=== PATIENT | female | born 1965 | race Caucasian/White ===

== ENCOUNTER → 2021-05-17 14:30 | Outpatient (BNVA) | payer MEDICARE, SELFPAY | PROVIDERS: Family Provider Family Medicine; Visit Provider Family Medicine | DX: Z13.6 Encounter for screening for cardiovascular disorders (principal); R74.8 Abnormal levels of other serum enzymes; Z13.1 Encounter for screening for diabetes mellitus | CPT/HCPCS: 80053; 80061 ==

== ENCOUNTER → 2022-06-29 14:13 | Outpatient (BNVA) | payer BC, SELFPAY | PROVIDERS: Family Provider Family Medicine; PCP Family Medicine; Visit Provider Family Medicine | DX: Z13.1 Encounter for screening for diabetes mellitus (principal); E78.2 Mixed hyperlipidemia; M54.6 Pain in thoracic spine; R13.10 Dysphagia, unspecified; M77.8 Other enthesopathies, not elsewhere classified; R13.12 Dysphagia, oropharyngeal phase; Z72.0 Tobacco use | CPT/HCPCS: 80048; 80061 ==

== ENCOUNTER → 2022-07-15 12:57 | Outpatient (BNVA) | payer BC, SELFPAY | PROVIDERS: Family Provider Family Medicine; PCP Family Medicine; Visit Provider Family Medicine | DX: M54.6 Pain in thoracic spine (principal) | CPT/HCPCS: 72072 ==

== ENCOUNTER 2022-07-29 08:22 | Outpatient (CLI) | payer MEDICARE, SELFPAY ==
--- NOTE | 2022-07-29 10:15 | FL_ITS ---
WS: [id number] EXAMINATION: FL barium swallow modifd [id number] REASON FOR EXAM: R13.10 - Dysphagia, unspecified ORDER DATE: 07/29/2022 9:10 AM FLUOROSCOPY TIME: 1min [id number] # OF SPOT FILMS: 0 TECHNIQUE: The oral cavity and upper pharyngeal and laryngeal region were observed in the lateral pro jection with fluoroscopy during swallowing. Different consistencies of liquid and food were mixed with barium and administered by the speech path ologist during fluoroscopy. FINDINGS: The oral stage was unremarkable with satisfactory initiation of the swallowing reflex. Mov ement of contrast coated material through the pharynx into the upper esophagus was observed. There wa s no evidence of penetration or aspiration. There was a tendency for the contrast bolus 2 low signifi cantly in the mid esophagus with the barium pill stopping for short time at this level. Please refer to speech pathologist report for specific details regarding this finding and a full report. FL/FL barium swallow modifd [id number] IMPRESSION: PLEASE REFER TO THE SPEECH PATHOLOGIST REPORT FOR ADDITIONAL DETAILS REGARDING THIS MODIFIED BARIUM SWALLOW STUDY.
== END 2022-07-29 08:23 | disposition home or self-care (01) ==
PROVIDERS: PCP Family Medicine; Visit Provider Family Medicine
DX: R49.0 Dysphonia (principal); F17.210 Nicotine dependence, cigarettes, uncomplicated; R13.10 Dysphagia, unspecified
CPT/HCPCS: 31575; 74230; 92611; 99203

== ENCOUNTER → 2022-08-29 09:51 | Outpatient (BNVA) | payer MEDICARE, SELFPAY | PROVIDERS: PCP Family Medicine; Visit Provider Family Medicine | DX: R74.8 Abnormal levels of other serum enzymes (principal) | CPT/HCPCS: 80048; 85025 ==

== ENCOUNTER → 2022-09-30 09:28 | Outpatient (BNVA) | payer MEDICARE, SELFPAY | PROVIDERS: PCP Family Medicine; Visit Provider Otolaryngology | DX: R49.0 Dysphonia (principal); R13.10 Dysphagia, unspecified; F17.210 Nicotine dependence, cigarettes, uncomplicated | CPT/HCPCS: 31575; 99203 ==

== ENCOUNTER → 2022-11-18 09:26 | Outpatient (BNVA) | payer MEDICARE, SELFPAY | PROVIDERS: PCP Family Medicine; Visit Provider Otolaryngology | DX: R49.0 Dysphonia (principal); K21.9 Gastro-esophageal reflux disease without esophagitis; R13.10 Dysphagia, unspecified | CPT/HCPCS: 31575; 99213 ==

== ENCOUNTER 2023-03-10 02:24 | Emergency (ER) | payer MEDICARE, SELFPAY ==
[2023-03-10 02:29] VITALS: BP 128/59; PULSE 75; RESP 20; TEMP 36.5; O2SAT 98; BMI 18.7
--- NOTE | 2023-03-10 02:34 | CTR_ITS ---
PROCEDURE INFORMATION: Exam: CT Abdomen And Pelvis Without Contrast Exam date and time: 03/10/2023 2:50 AM Age: 57 years old Clinical indication: Abdominal pain; Flank; Lower; Prior surgery; Surgery date: 6+ months; Surgery type: Hysto, gb, appy; Additional info: L flank pain TECHNIQUE: Imaging protocol: Computed tomography of the abdomen and pelvis without contrast. Radiation optimization: All CT scans at this facility use at least one of these dose optimization techniques: automated exposure control; mA and/or kV adjustment per patient size (includes targeted exams where dose is matched to clinical indication); or iterative reconstruction. REPORTING DATA: Count of CT and Cardiac NM exams in prior 12 months: This patient has received 0 known CTs and 0 known cardiac nuclear medicine studies in the 12 months prior to the current study. COMPARISON: CR XR thoracic spine 3V* [id number] 07/15/2022 1:08 PM RADIATION DOSE METRICS: Total DLP (mGy-cm): 322.03 FINDINGS: Lungs: Tubular bronchiectasis is noted with inspissated secretions obstructing dilated bronchi in the lingula, incompletely imaged. Liver: Normal. No mass. Gallbladder and bile ducts: Surgical clips are noted in the gallbladder fossa compatible with a prior cholecystectomy. Intra and extrahepatic biliary ductal prominence is nonspecific in such a setting. If there is clinical suspicion for biliary obstruction, suggest MRCP to further assess. Pancreas: Normal. No ductal dilation. Spleen: Normal. No splenomegaly. Adrenal glands: Normal. No mass. Kidneys and ureters: The kidneys are normal in size without hydronephrosis or nephrolithiasis. There is an exophytic 16 x 14 x 10 mm cortical lesion arising from the lower pole of the right kidney which is incompletely evaluated on this noncontrast CT. Recommend renal ultrasound to further assess. Stomach and bowel: There is mild to moderate stool load in the colon. Appendix: No evidence of appendicitis. Intraperitoneal space: Unremarkable. No free air. No significant fluid collection. Vasculature: Unremarkable. No abdominal aortic aneurysm. Lymph nodes: Unremarkable. No enlarged lymph nodes. Urinary bladder: The urinary bladder is relatively contracted. Reproductive: Gynecologic structures are not well seen and may be atrophic or surgically absent. Bones/joints: Unremarkable. No acute fracture. Soft tissues: Unremarkable. CT/CT kidney stone [id number] IMPRESSION: Postsurgical change as described. Biliary prominence is nonspecific. If there is suspicion for biliary obstruction, suggest MRCP to further assess. Constipation. Indeterminate 16 mm right renal cortical lesion. Suggest renal ultrasound to further assess.
--- NOTE | 2023-03-10 02:35 | ED_ITS ---
HPI - Back Pain/Injury General: Chief Complaint: Back Pain/Injury Stated Complaint: Kidney Pain Time Seen by Provider: 03/10/23 02:25 Source: patient Mode of arrival: ambulatory Limitations: no limitations History of Present Illness: 57-year-old female who states that she has been having left flank pain over the last 2 to 3 days. She does have a history of back pain in the past. States his pain has been intermittent is currently a 5 out of 10 she denies any dysuria she had some nausea denies any vomiting or diarrhea. She denies any worsening proving factors. Associated symptoms: Reports nausea; Deny abdominal pain, chills, dysuria, fever(s) or vomiting Review of Systems Const: Denies: fever(s), chills, body aches or change in appetite ENMT: Denies: throat pain or dental pain Card: Denies: chest pain Resp: Denies: dyspnea GI: Reports: nausea; Denies: abdominal pain, vomiting or diarrhea : Reports: flank pain; Denies: dysuria Musc: Denies: neck pain or back pain Skin/Breast: Denies: rash Neuro: Denies: headache(s) PFSH ED PFSH: Medical History Fibromyalgia Left shoulder tendonitis Surgical History H/O: hysterectomy History of appendectomy Hx of cholecystectomy Family History Sister Hypertension Brother Hypertension Mother Hypertension Cancer kidney cancer Social History Smoking and tobacco/nicotine status: current every day tobacco/nicotine user (1/2 ppd) cigarettes Alcohol intake: never Substance/Drug Use: never Physical Exam Const: COMMON NORMALS: no acute distress, patient oriented x3 and healthy appearing HENMT: COMMON NORMALS: normocephalic and atraumatic HEAD & SCALP: normocephalic and atraumatic Neck/C-Spine: COMMON NORMALS: full ROM and supple Chest: COMMONS NORMALS: normal inspection of the chest Resp: COMMON NORMALS: normal respiratory effort Cardio: COMMON NORMALS: regular rate, regular rhythm and No murmurs present (Cardio) RATE: regular rate RHYTHM: regular rhythm Extremity: COMMON NORMALS: normal to inspection and full ROM Neuro: COMMON NORMALS: patient oriented x3, moves all extremities and no focal motor deficits Psych: COMMON NORMALS: mental status grossly normal, Normal thought process present and cooperative THOUGHT PROCESS: Normal thought process present Skin: COMMON NORMALS: no rashes or lesions noted and no wounds GENERAL SKIN EXAM: no rashes or lesions noted Course Vital Signs: Vital signs: Vital Signs Temperature 97.7 F 03/10/23 02:29 Pulse Rate 75 03/10/23 02:29 Respiratory Rate 18 03/10/23 02:44 Blood Pressure 128/59 03/10/23 02:29 Pulse Oximetry 98 03/10/23 02:29 MDM - Back Pain/Injury Medical Decision Making Patient presents here with back pains likely muscular in nature CT scan shows no kidney stone urinalysis here is normal as well no signs of urinary tract or kidney infection we will place patient on Naprosyn patient is to follow-up with PCP and return if worsening. Medical Records I reviewed the patient's medical records. Labs I reviewed the patient's lab results. 03/10/23 02:35 03/10/23 02:35 Radiology Impressions Abdomen/Pelvis CT 03/10/23 02:34 IMPRESSION: Postsurgical change as described. Biliary prominence is nonspecific. If there is suspicion for biliary obstruction, suggest MRCP to further assess. Constipation. Indeterminate 16 mm right renal cortical lesion. Suggest renal ultrasound to further assess. Laboratory Results WBC 9.43 10^3/uL (3.29-11.43) 03/10/23 02:35 RBC 4.50 10^6/uL (3.85-5.65) 03/10/23 02:35 Hgb 14.10 g/dL (11.27-16.99) 03/10/23 02:35 Hct 43.6 % (36-47) 03/10/23 02:35 MCV 96.9 fl (85-98) 03/10/23 02:35 MCH 31.3 pg (27-33) 03/10/23 02:35 MCHC 32.3 g/dL (30-55) 03/10/23 02:35 RDW 12.1 % (12.1-15.1) 03/10/23 02:35 Plt Count 272 10^3/cmm (157-399) 03/10/23 02:35 MPV 9.5 fL (7.4-10.4) 03/10/23 02:35 Neut % (Auto) 57.1 % 03/10/23 02:35 Lymph % (Auto) 30.8 % 03/10/23 02:35 [place] % (Auto) 10.2 % 03/10/23 02:35 Eos % (Auto) 1.4 % 03/10/23 02:35 Baso % (Auto) 0.4 % 03/10/23 02:35 Neut # (Auto) 5.39 10^3/uL (1.8-7.7) 03/10/23 02:35 Lymph # (Auto) 2.9 10^3/uL (0.8-4.8) 03/10/23 02:35 [place] # (Auto) 1.0 10^3/uL (0.2-0.9) H 03/10/23 02:35 Eos # (Auto) 0.1 10^3/uL (0.0-0.8) 03/10/23 02:35 Baso # (Auto) 0.0 10^3/uL (0.0-0.1) 03/10/23 02:35 Nucleated RBC % (auto) 0 % 03/10/23 02:35 Nucleated RBCs # 0.0 /100WBC 03/10/23 02:35 Sodium 142 mmol/L (136-145) 03/10/23 02:35 Potassium 4.4 mmol/L (3.5-5.1) 03/10/23 02:35 Chloride 106 mmol/L (98-107) 03/10/23 02:35 Carbon Dioxide 26 mmol/L (22-29) 03/10/23 02:35 Anion Gap 14.4 (5-19) 03/10/23 02:35 BUN 16 mg/dL (6-20) 03/10/23 02:35 Creatinine 0.7 mg/dL (0.5-0.9) 03/10/23 02:35 GFR Calculation 86.9 mL/min (90-130) L 03/10/23 02:35 Glucose 96 mg/dL (65-115) 03/10/23 02:35 Calculated Osmolality 295 mOsm/kg (285-295) 03/10/23 02:35 Calcium 9.5 mg/dL (8.5-10.5) 03/10/23 02:35 Total Bilirubin 0.2 mg/dL (0.15-1.2) 03/10/23 02:35 AST 26 U/L (0-32) 03/10/23 02:35 ALT 18 U/L (0-33) 03/10/23 02:35 Alkaline Phosphatase 90 U/L (35-105) 03/10/23 02:35 Total Protein 6.8 g/dL (6.6-8.7) 03/10/23 02:35 Albumin 4.7 g/dL (3.5-5.2) 03/10/23 02:35 Globulin 2.1 g/dL (1.3-4.6) 03/10/23 02:35 Lipase 36 U/L (13-60) 03/10/23 02:35 Urine Color Light yellow (Yellow) 03/10/23 02:35 Urine Appearance Clear (CLEAR) 03/10/23 02:35 Urine pH 5 (5-7) 03/10/23 02:35 Ur Specific [place] 1.010 (1.005-1.030) 03/10/23 02:35 Urine Protein Neg (Negative) 03/10/23 02:35 Urine Glucose (UA) Norm (Normal) 03/10/23 02:35 Urine Ketones Negative (Negative) 03/10/23 02:35 Urine Blood Neg (Negative) 03/10/23 02:35 Urine Nitrate Negative (Negative) 03/10/23 02:35 Urine Bilirubin Neg (Negative) 03/10/23 02:35 Urine Urobilinogen Neg mg/dL (Negative) 03/10/23 02:35 Ur Leukocyte Esterase Negative (Negative) 03/10/23 02:35 All radiology interpretation(s) finalized by discharge Discharge Plan Discharge Patient Disposition: Home Clinical Impression: Back pain Condition: Stable Prescriptions: New Naprosyn 500 mg tablet 500 mg PO BID PRN (Reason: pain) Qty: 20 0RF No Action naproxen 500 mg tablet 500 mg PO BID Hold Instructions: Home Medication placed on hold at Doctor's office erythromycin 5 mg/gram (0.5 %) ointment 1 applic ophthalmic (eye) Q6H PRN (Reason: eye prophylaxis) 7 Days Qty: 7 1RF tizanidine 2 mg tablet 2 mg PO Q8H PRN (Reason: muscle spasticity) Qty: 30 1RF omeprazole 20 mg capsule,delayed release(DR/EC) 20 mg PO DAILY 360 Days Qty: 90 3RF Discharge Orders: Discharge ED (Routine); Ordered 03/10/23 Ordered By: Scott Nesbitt Referrals: Celeste Engel MD [Primary Care Provider] - 1-3 days Discharge Diet: Advance as tolerated Discharge Activity: Resume usual activity Patient Instructions: Back Pain (ED) Coding Level of Care Code ED Supervisor [employer] Processing for Maria Alejandra Mott
[2023-03-10] MEDS: sodium chloride 0.9% 1,000 ML 999 ML IV (02:41)
[2023-03-10] MEDS: ondansetron 2 mg/ML SDV 2 mL 4 MG IVP (02:42)
[2023-03-10 02:44] VITALS: RESP 18
[2023-03-10] MEDS: morphine 4 mg/mL SDV 1 mL IVP (02:44)
[2023-03-10 02:50] LABS: Add Urine Microscopic? NO; Charge for UA Resulting for Rev
[2023-03-10 02:51] LABS: Bilirubin Urine Neg (Negative); Blood Urine Neg (Negative); Glucose Urine UA Norm (Normal); Ketones Urine Negative (Negative); Nitrate Urine Negative (Negative); Protein Urine Neg (Negative); Urine Appearance Clear (CLEAR); Urine Color Light yellow (Yellow); pH Urine 5 (5-7)
[2023-03-10 02:52] LABS: Leukocyte Esterase Urine Negative (Negative); Urobilinogen Urine Neg (Negative)
[2023-03-10 02:53] LABS: Basophils % 0.4 %; Eosinophils # 0.1 10^3/uL (0.0-0.8); Eosinophils % 1.4 %; Hematocrit 43.6 % (36-47); Lymphocytes # 2.9 10^3/uL (0.8-4.8); Lymphocytes % 30.8 %; Mean Corpuscular HGB Conc 32.3 g/dL (30-55); Mean Corpuscular Hemoglobin 31.3 pg (27-33); Mean Corpuscular Volume 96.9 fl (85-98); Mean Platelet Volume 9.5 fL (7.4-10.4); Monocytes % 10.2 %; Neutrophils # 5.39 10^3/uL (1.8-7.7); Neutrophils % 57.1 %; Nucleated Red Blood Cells % 0 %; Platelet Count 272 10^3/cmm (157-399); Red Cell Distribution Width 12.1 % (12.1-15.1); White Blood Count 9.43 10^3/uL (3.29-11.43)
[2023-03-10 03:14] LABS: Alanine Aminotransferase 18 U/L (0-33); Albumin Level 4.7 g/dL (3.5-5.2); Alkaline Phosphatase 90 U/L (35-105); Anion Gap 14.4 (5-19); Aspartate Amino Transferase 26 U/L (0-32); Blood Urea Nitrogen 16 mg/dL (6-20); Calcium 9.5 mg/dL (8.5-10.5); Carbon Dioxide 26 mmol/L (22-29); Chloride 106 mmol/L (98-107); Globulin 2.1 g/dL (1.3-4.6); Glomerular Filtration Rate 86.9 mL/min (90-130); Glucose 96 mg/dL (65-115); Lipase 36 U/L (13-60); Osmolality Calculated 295 mOsm/kg (285-295); Potassium 4.4 mmol/L (3.5-5.1); Sodium 142 mmol/L (136-145); Total Bilirubin 0.2 mg/dL (0.15-1.2); Total Protein 6.8 g/dL (6.6-8.7)
[2023-03-10 03:32] VITALS: BP 101/61; PULSE 62; RESP 14; O2SAT 98
[2023-03-10] MEDS: lidocaine 2% viscous 15 ML, aluminum-mag hydrox-simethicon 30 ML, sucralfate oral liq 1 GM PO (04:06)
--- NOTE | 2023-03-10 04:08 | PC.NURSE ---
Pt c/o epigastric pain and requesting medications. Dr Nesbitt notified and pt given Gi cocktail.
[2023-03-10 04:09] VITALS: BP 100/59; PULSE 65; RESP 14; O2SAT 94
== END 2023-03-10 04:10 | disposition home or self-care (01) ==
PROVIDERS: Emergency Provider Emergency Medicine; PCP Family Medicine
DX: M54.50 Low back pain, unspecified (principal); F17.210 Nicotine dependence, cigarettes, uncomplicated
CPT/HCPCS: 74176; 80053; 81003; 83690; 85025; 96361; 96374; 96375; 99285; J2270; J2405; J7030

== ENCOUNTER 2023-06-19 09:09 | Observation (INO) | payer MEDICARE, SELFPAY ==
[2023-06-19] VITALS (9 sets, daily range): BP systolic 96–125; BP diastolic 51–77; PULSE 59–70; RESP 12–18; TEMP 36.6–37; O2SAT 94–98; BMI 18.0
--- NOTE | 2023-06-19 09:43 | XR_ITS ---
WS: [id number] PORTABLE CHEST HISTORY: palpitations COMPARISON: None available. Hyperinflated lungs with emphysema. No mass or nodule. No pneumonia. No pleural effusion or pneumotho rax. Cardiac size: Normal. Mediastinum/Aorta: Normal mediastinum. No osseous abnormality seen. IMPRESSION: Chronic emphysema. No pneumonia.
--- NOTE | 2023-06-19 09:43 | ECG_ITS ---
[facility] Test Date: 2023-06-19 Pat Name: Rosmery Recio Department: Room: Gender: Female Slot Operations Director: : 1965 Requested By: Katya Hardy Order Number: [id number] Ritchie MD: Jorge Espinal M.D. Measurements Intervals [place] Rate: 83 P: 83 [place]: 135 QRS: 67 QRSD: 78 T: 71 QT: 359 QTc: 422 Interpretive Statements SINUS RHYTHM POSSIBLE RIGHT VENTRICULAR CONDUCTION DELAY [RSR (QR) IN V1/V2] No previous ECG available for comparison Electronically Signed On 06-19-2023 14:18:37 [employer] BUILDER by Jorge Espinal M.D. [id number]
--- NOTE | 2023-06-19 09:44 | CT_ITS ---
WS: [id number] CT HEAD NONCONTRAST HISTORY: lightheaded, blacked out, tingling TECHNIQUE: Contiguous axial imaging performed through the brain in 2.5 mm imaging. Bone and soft tiss ue windows. Sagittal and coronal reformats reviewed. All CT scans at [facility] use at least one of these dose optimization techniques: automated exposure control; mA and/or kV adjustment per pa tient size (includes targeted exams where dose is matched to clinical indication); or iterative recon struction. DLP: 945.98 mGy.cm COMPARISON: None available. No acute intracranial hemorrhage, midline shift or mass effect. No atrophy or prior infarcts or herniation. Ventricles: Normal size with no hydrocephalus. There is very slight enlargement of the LEFT occipita l horn which is probably normal variant. No adjacent infarct is identified. Paranasal sinuses: As visualized are clear. Mastoid air cells: Well pneumatized. Calvarium and scalp: Skull is intact with no soft tissue edema or swelling. IMPRESSION: Unremarkable noncontrast CT head. No acute findings.
--- NOTE | 2023-06-19 09:45 | W.ED.GENADLT ---
HPI - General Adult General: Chief complaint: Dizziness Stated complaint: blacking out, confusion Time Seen by Provider: 06/19/23 09:29 Source: patient and family () Mode of arrival: ambulatory Limitations: no limitations History of Present Illness: Patient is a 57-year-old female presents to ED today for evaluation of an episode that occurred just prior to arrival. Patient tells me she was seated in a chair when she began having a sensation that she was being pulled to the left . Patient states then she began having tunnel vision and states she blacked out. Unknown how long she was out for but states when she came to she felt like her heart was racing and she had some numbness/tingling to the left arm. Upon arrival to the emergency department she no longer is having palpitations, racing heart rate. She states the tingling to her left arm has subsided. She states her vision is essentially back to normal apart from noticing a floater . She states she has had one floater over that has been there for about two years but states she now has 2. She still feels like she is being pulled to the left. No ear pain, tinnitus, or hearing loss. No recent illness or URI. PMH includes smoking history and tendonitis in her hands. Patient was able to ambulate back to her room without assistance. Onset (ago): hour(s) Severity: mild Relieving factors: none Exacerbating factors: none Associated symptoms: Reports palpitations (racing heart rate/subsided upon examination ); Deny chest pain, confusion, dyspnea, headache(s), malaise, rash or syncope Treatments prior to arrival: none Review of Systems Const: Denies: fever(s), chills, body aches, fatigue or malaise Eyes: Reports: floaters; Denies: blurry vision, photophobia, eye discomfort, eye redness, yellow eyes or seeing flashes ENMT: Reports: disequilibrium; Denies: throat pain, odynophagia, ear or mastoid pain, ear discharge, change in hearing, tinnitus, nasal discharge, nasal congestion or sinus pain Card: Reports: palpitations (racing heart rate/subsided upon examination ); Denies: chest pain, irregular heart rhythm, edema, swelling of feet/ankles, lightheadedness, syncope, pre-syncope, dyspnea on exertion, orthopnea, leg pain with exertion or acrocyanosis Resp: Denies: dyspnea GI: Denies: abdominal pain Musc: Denies: neck pain, back pain, extremity pain, extremity swelling, joint pain or joint swelling Skin/Breast: Denies: rash Neuro: Reports: sensory changes (L arm-subsided upon arrival) and dizziness (states she does not feel dizzy-just lightheaded ); Denies: headache(s), numbness in extremities, weakness in extremities, lack of coordination, difficulty walking, frequent falls, confusion, behavioral changes, Slurred speech present, difficulty communicating thoughts, seizure-like activity or involuntary movements [facility] ED PFSH: Medical History (Updated 06/19/23 @ 13:43 by NIKOLAS Baires) GERD (gastroesophageal reflux disease) Mixed hyperlipidemia Fibromyalgia Surgical History History of appendectomy H/O: hysterectomy Hx of cholecystectomy Family History Sister Hypertension Brother Hypertension Mother Hypertension Cancer kidney cancer Social History Smoking and tobacco/nicotine status: current every day tobacco/nicotine user (1/2 ppd) cigarettes Alcohol intake: never Substance/Drug Use: never Physical Exam Const: COMMON NORMALS: no acute distress, average body habitus, patient oriented x3, no limitations, alert and well nourished GENERAL APPEARANCE: cooperative ORIENTATION/CONSCIOUSNESS: Yes awake, Yes oriented to person, Yes oriented to place and Yes oriented to time HENMT: COMMON NORMALS: normocephalic, atraumatic, hearing grossly normal bilaterally, external ears normal, EAC's normal and TM's normal bilaterally HEAD & SCALP: normal to inspection, normocephalic and atraumatic FACE & SINUS: normal facial exam and face symmetric EXTERNAL EAR: Yes external ears normal EXTERNAL AUDITORY CANAL: EAC's normal TYMPANIC MEMBRANE: TM's normal bilaterally Eye: COMMON NORMALS: Equal, round and reactive pupils present and EOMs intact bilaterally GENERAL EYE: appearance normal, both eyes and all related structures and normal light reflex VISUAL REBOLLEDO: No peripheral vision loss, No central vision loss, No left visual field cut, No right visual field cut, No bitemporal visual field cut, No binasal visual field cut and No visual field cut by quadrant ALIGNMENT: Yes alignment normal PERIORBITAL: periorbital findings normal PUPIL: Yes Equal, round and reactive pupils present DIRECT OPHTHALMOSCOPY: Yes normal light reflex OTHER: no nystagmus Neck/C-Spine: COMMON NORMALS: full ROM, no lymphadenopathy, supple and no meningeal signs Chest: COMMONS NORMALS: normal inspection of the chest Resp: COMMON NORMALS: normal respiratory effort and clear to auscultation bilaterally AUSCULTATION: clear to auscultation bilaterally Cardio: COMMON NORMALS: regular rate and regular rhythm RATE: regular rate RHYTHM: regular rhythm Extremity: COMMON NORMALS: normal to inspection GENERAL: Yes normal exam except as noted Neuro: HERON COMA SCALE: document GCS findings Heron coma scale eye opening: Spontaneous Heron coma scale verbal response: Orientated [place]on coma scale motor response: Obey commands [place] coma scale total score: 15 COMMON NORMALS: patient oriented x3, CN's II-XII intact bilaterally, moves all extremities, no focal motor deficits, no sensory deficits noted and gait normal SENSORIUM/ORIENTATION: Yes alert, Yes oriented to person, Yes oriented to place and Yes oriented to time MENINGEAL SIGNS: Yes no meningeal signs CRANIAL NERVES: Yes CN normal except as noted COORDINATION/BALANCE: [id number]-fd-[id number] test normal and qteu-fz-doyl test normal SPEECH: speech normal GAIT: Yes Other gait observations present (see below) MOTOR EXAM: 5/5 motor strength present throughout COORDINATION: rlwcbe-ie-[id number] test normal and qyfk-ao-wymm test normal OTHER: Patient was able to get up in her room and ambulate unassisted however gait did appear somewhat unsteady. states she is walking like she is drunk . Patient tells me she still feels like she is getting pulled to the left. Skin: COMMON NORMALS: no rashes or lesions noted GENERAL SKIN EXAM: no rashes or lesions noted Course Consultations: Consultation #1: Dr. Zarco-recommends CTA head/neck as well as MRI w/ and w/o and 2D echo and give her aspirin; states if we cannot get all of this done from the ED then we can admit to OBS Vital Signs: Vital signs: Vital Signs Temperature 98.0 F 06/19/23 09:22 Pulse Rate 70 06/19/23 09:22 Respiratory Rate 12 06/19/23 09:22 Blood Pressure 100/53 06/19/23 09:22 Pulse Oximetry 94 06/19/23 09:22 Oxygen Delivery Me thod Room Air 06/19/23 09:22 MDM - General Adult Medical Decision Making Patient here for evaluation following an episode of feeling like she was being pulled to the left, loss of vision, new left eye floater, heart palpitations, and left arm numbness and tingling. I have discussed case with Dr. Nesbitt who agreed with decision to consult with neurology. I spoke to Dr. Zarco who had recommended CTA head/neck, MRI with and without contrast, and a 2D echocardiogram. He has graciously came and evaluated patient here in the emergency department. Please see his note regarding his encounter with the patient. I spoken to Dr. Kramer who will admit the patient. Dr. Nesbitt will write admit orders Medical Records I reviewed the patient's medical records. Lab Data I reviewed the patient's lab results. 06/19/23 09:58 06/19/23 09:58 Laboratory Results WBC 7.44 10^3/uL (3.29-11.43) 06/19/23 09:58 RBC 4.93 10^6/uL (3.85-5.65) 06/19/23 09:58 Hgb 15.40 g/dL (11.27-16.99) 06/19/23 09:58 Hct 46.6 % (36-47) 06/19/23 09:58 MCV 94.5 fl (85-98) 06/19/23 09:58 MCH 31.2 pg (27-33) 06/19/23 09:58 MCHC 33.0 g/dL (30-55) 06/19/23 09:58 RDW 12.1 % (12.1-15.1) 06/19/23 09:58 Plt Count 286 10^3/cmm (157-399) 06/19/23 09:58 MPV 8.6 fL (7.4-10.4) 06/19/23 09:58 Neut % (Auto) 59.0 % 06/19/23 09:58 Lymph % (Auto) 28.4 % 06/19/23 09:58 [place] % (Auto) 11.7 % 06/19/23 09:58 Eos % (Auto) 0.4 % 06/19/23 09:58 Baso % (Auto) 0.4 % 06/19/23 09:58 Neut # (Auto) 4.39 10^3/uL (1.8-7.7) 06/19/23 09:58 Lymph # (Auto) 2.1 10^3/uL (0.8-4.8) 06/19/23 09:58 [place] # (Auto) 0.9 10^3/uL (0.2-0.9) 06/19/23 09:58 Eos # (Auto) 0.0 10^3/uL (0.0-0.8) 06/19/23 09:58 Baso # (Auto) 0.0 10^3/uL (0.0-0.1) 06/19/23 09:58 Nucleated RBC % (auto) 0 % 06/19/23 09:58 Nucleated RBCs # 0.0 /100WBC 06/19/23 09:58 Sodium 137 mmol/L (136-145) 06/19/23 09:58 Potassium 4.0 mmol/L (3.5-5.1) 06/19/23 09:58 Chloride 104 mmol/L (98-107) 06/19/23 09:58 Carbon Dioxide 23 mmol/L (22-29) 06/19/23 09:58 Anion Gap 14.0 (5-19) 06/19/23 09:58 BUN 11 mg/dL (6-20) 06/19/23 09:58 Creatinine 0.7 mg/dL (0.5-0.9) 06/19/23 09:58 GFR Calculation 86.9 mL/min (90-130) L 06/19/23 09:58 Glucose 92 mg/dL (65-115) 06/19/23 09:58 Calculated Osmolality 283 mOsm/kg (285-295) L 06/19/23 09:58 Calcium 9.1 mg/dL (8.5-10.5) 06/19/23 09:58 Total Bilirubin 0.3 mg/dL (0.15-1.2) 06/19/23 09:58 AST 15 U/L (0-32) 06/19/23 09:58 ALT 12 U/L (0-33) 06/19/23 09:58 Alkaline Phosphatase 91 U/L (35-105) 06/19/23 09:58 Troponin T Baseline < 6 ng/L (0-10) 06/19/23 09:58 Troponin T 120 Minute 6.00 ng/L (0-10) 06/19/23 12:27 Delta Troponin T 0.93131 ABS# (0-10) 06/19/23 12:27 Total Protein 7.8 g/dL (6.6-8.7) 06/19/23 09:58 Albumin 4.6 g/dL (3.5-5.2) 06/19/23 09:58 Globulin 3.2 g/dL (1.3-4.6) 06/19/23 09:58 All radiology interpretation(s) finalized by discharge Discharge Plan Discharge Patient Disposition: Placed in Observation Clinical Impression: TIA (transient ischemic attack) Condition: Stable Prescriptions: No Action naproxen 500 mg tablet 500 mg PO BID PRN (Reason: INFLAMATION AND PAIN) Hold Instructions: Home Medication placed on hold at Doctor's office Multi-Vitamins Tablet 1 tab PO DAILY Vitamin C 500 mg Tablet 250 mg PO DAILY Vitamin D3 50 mcg (2,000 unit) Tablet 50 mcg PO DAILY Referrals: Celeste Engel MD [Primary Care Provider] - Coding Level of Care Code ED Graphic Production Artist for Maria Alejandra Mott NIH stroke score NIHSS Level Of Consciousness - 1a: 0 Level Of Consciousness Questions - 1b: Both Correct Level Of Consciousness Commands - 1c: Both Correct Best Gaze - 2: Normal Visual [place] - 3: No Visual Loss Facial Palsy - 4: Normal Motor Arm Right - 5: No Drift Motor Arm Left - 5: No Drift Motor Leg Right - 6: No Drift Motor Leg Left - 6: No Drift Limb Ataxia - 7: Absent Sensory - 8: Normal Best Language - 9: No Aphasia Dysarthia - 10: Normal Extinction And Inattention - 11: 0 Score Total Score: 0
[2023-06-19] MEDS: sodium chloride 0.9% 1,000 ML 999 ML IV (09:52)
[2023-06-19 10:10] LABS: Basophils % 0.4 %; Eosinophils % 0.4 %; Hematocrit 46.6 % (36-47); Lymphocytes # 2.1 10^3/uL (0.8-4.8); Lymphocytes % 28.4 %; Mean Corpuscular Hemoglobin 31.2 pg (27-33); Mean Corpuscular Volume 94.5 fl (85-98); Mean Platelet Volume 8.6 fL (7.4-10.4); Monocytes # 0.9 10^3/uL (0.2-0.9); Monocytes % 11.7 %; Neutrophils # 4.39 10^3/uL (1.8-7.7); Nucleated Red Blood Cells % 0 %; Platelet Count 286 10^3/cmm (157-399); Red Blood Count 4.93 10^6/uL (3.85-5.65); Red Cell Distribution Width 12.1 % (12.1-15.1); White Blood Count 7.44 10^3/uL (3.29-11.43)
[2023-06-19 10:24] LABS: Alanine Aminotransferase 12 U/L (0-33); Albumin Level 4.6 g/dL (3.5-5.2); Alkaline Phosphatase 91 U/L (35-105); Aspartate Amino Transferase 15 U/L (0-32); Blood Urea Nitrogen 11 mg/dL (6-20); Calcium 9.1 mg/dL (8.5-10.5); Carbon Dioxide 23 mmol/L (22-29); Chloride 104 mmol/L (98-107); Globulin 3.2 g/dL (1.3-4.6); Glomerular Filtration Rate 86.9 mL/min (90-130); Glucose 92 mg/dL (65-115); Osmolality Calculated 283 mOsm/kg (285-295); Sodium 137 mmol/L (136-145); Total Bilirubin 0.3 mg/dL (0.15-1.2); Total Protein 7.8 g/dL (6.6-8.7)
[2023-06-19 10:26] LABS: Troponin(5th) Baseline < 6 ng/L (0-10)
--- NOTE | 2023-06-19 11:17 | CT_ITS ---
WS: [id number] CT ANGIOGRAM CEREBRAL AND CAROTID ARTERIES HISTORY: being pulled to left, L eye floaters, L arm numbness TECHNIQUE: CT angiogram is performed of the carotid and cerebral arteries. During arterial injection imaging is obtained from the skull vertex to the aortic arch in 1.25 mm imaging. Coronal and sagittal reformats are submitted. Additional multi planar reformats of the carotid and cerebral arteries are submitted, MIP imaging also reviewed. NASCET criteria utilized. [facility] at least one of these dose optimization techniques: automated exposure control; mA and/or kV adjust ment per patient size (includes targeted exams where dose is matched to clinical indication); or iter ative reconstruction. CONTRAST: Omnipaque 350; 100 mL IV. DLP: 340.69 mGy.cm COMPARISON: CT head 06/19/2023 Carotid Angiogram: Right carotid: Common carotid artery: Arises normally from the innominate artery. No significant plaque or stenosis. Internal carotid artery: No plaque or stenosis. External carotid artery: Patent. Left carotid: Common carotid artery: Arises normally from the aorta. No significant plaque or stenosis. Internal carotid artery: No plaque or stenosis. External carotid artery: Patent. Right vertebral artery: Unremarkable. Left vertebral artery: Unremarkable. Arises normally from the subclavian artery. Subclavian arteries: No stenosis or significant abnormality. Upper thorax: Biapical pleural thickening and scarring. Thyroid gland: Small tiny nodules RIGHT thyroid. Osseous structures: Unremarkable. CEREBRAL ANGIOGRAM: Intracranial vertebral arteries: Normal with no significant atherosclerosis. Basilar artery: No significant stenosis or occlusion. No aneurysm. Intracranial Internal carotid arteries: Demonstrates no significant stenosis or plaque. Middle cerebral arteries: Normal. Anterior cerebral arteries and ACOM: Normal. Posterior cerebral arteries and PCOM's: Normal. Dural venous sinuses are normally enhancing. Mastoid air cells: Normal. Paranasal sinuses: Normal. Calvarium: Normal. IMPRESSION: 1. Normal carotid arteries. 2. No occlusions or significant atherosclerotic disease within the [place] of [place]. No aneurysm. No ophthalmic artery aneurysm.
[2023-06-19] MEDS: aspirin 325 mg Tablet PO (11:36)
[2023-06-19] MEDS: iohexol 350 mg/mL 500 mL Btl (per mL) IV (11:51)
--- NOTE | 2023-06-19 12:05 | ECG_ITS ---
[facility] Test Date: 2023-06-19 Pat Name: Rosmery Recio Department: Room: Gender: Female Coal Miner: : 1965 Requested By: Katya Hardy Order Number: [id number] Chau MD: Jorge Espinal M.D. Measurements Intervals Trail Rate: 69 P: 87 AR: 140 QRS: 76 QRSD: 82 T: 78 QT: 385 QTc: 415 Interpretive Statements SINUS RHYTHM POSSIBLE RIGHT VENTRICULAR CONDUCTION DELAY [RSR (QR) IN V1/V2] Compared to ECG 06/19/2023 09:47:35 No significant changes Electronically Signed On 06-19-2023 14:20:56 LIGHT ARMORED RECONNAISSANCE OFFICER by Jorge Espinal M.D. [id number]
--- NOTE | 2023-06-19 12:20 | PM.CONSULT ---
Providers/Reason For Consult Consulting Physician/Specialty*: Michael Zarco MD neurology and epilepsy Reason for Consult*: Episode of acute balance difficulty associated with syncope followed by numbness and tingling in the left upper extremity with a new floater in the left eye and increased heart rate and palpitation on 06/19/2023 at approximately 7:30 AM Primary Care Provider: Celeste Engel MD History of Present Illness History of Present Illness Rosmery Recio is a 57 year old female with a history of nicotine dependence and total abdominal hysterectomy and floater in the left eye. According to the patient, at approximately 7:30 AM on 06/19/2023 she was at home with her daughter but was reported to experience acute onset of suddenly deviating to the left while walking associated with tunnel vision followed by loss of consciousness for an undetermined period of time. Patient stated that the syncopal episode was unwitnessed. She stated when she regained consciousness she was experiencing numbness and tingling in the left upper extremity associated with palpitations and increased heart rate and a new floater in the left eye. The patient denied any previous episodes. The patient's stated that he returned home and wanted to call EMS but the patient refused and wanted her to bring her to [facility] emergency department. Patient was seen in the emergency department room #9. Patient reported that the symptoms resolved all except for the new floater in the left eye. NIH score = 0. Noncontrast head CT scan was obtained and reported to be negative. In view of the patient's NIH score =0 the patient was not a candidate for intravenous thrombolytics and no thrombolytics were administered. Neurology consult was requested. I recommended the patient undergo CT angiogram of the head and neck as well as head MRI without and with contrast to assess for posterior fossa lesion and posterior circulation stroke. I also recommend the patient be placed on telemetry monitoring for history of palpitations and increased heart rate and obtain 2D echocardiogram to rule out embolic source for posterior circulation tight symptoms. I also recommend the patient's start aspirin 325 mg p.o. every morning first dose now and Zocor 40 mg p.o. nightly per NIH stroke protocol. CT angiogram of the head and neck 06/19/2023 negative for large vessel occlusion or ophthalmic aneurysm. Labs for CBC and comprehensive metabolic panel were unrevealing. Baseline total troponin level reported to be within normal limits at less than 6 and other troponin testing pending at the time of this dictation. Drug allergies: Amoxicillin which resulted in anaphylaxis Ibuprofen which resulted in hives Meloxicam which resulted in a rash Nickel which resulted in hives Prednisone which resulted in palpitations and weakness Sulfonamide antibiotics which resulted in hives Outpatient medications: None Past medications: Hormone supplements Habits: The patient smokes 1/2 pack/day. She denied other drug use. Family history: Remarkable for a maternal aunt who underwent a coronary artery bypass graft x 4 Review of Systems General: Reports: 10 or more systems reviewed and unremarkable except in HPI and below Eyes: Reports: floaters (New floater in the left eye and history of old floater in the left eye) Medications/Allergies Home Medications Medication Instructions Recorded Confirmed Last Taken Type naproxen 500 mg tablet 500 mg PO BID PRN INFLAMATION AND 06/22/19 06/19/23 Unknown History PAIN ascorbic acid (vitamin C) 500 mg 250 mg PO DAILY 06/19/23 06/19/23 06/18/23 History tablet (Vitamin C) cholecalciferol (vitamin D3) 50 50 mcg PO DAILY 06/19/23 06/19/23 06/18/23 History mcg (2,000 unit) tablet (Vitamin D3) multivitamin 1 tab PO DAILY 06/19/23 06/19/23 06/18/23 History Allergies Allergy/AdvReac Type Severity Reaction Status Date / Time amoxicillin Allergy anaphylaxis Verified 06/19/23 09:22 ibuprofen AdvReac Mild hives Verified 06/19/23 09:22 meloxicam [From Mobic] AdvReac Mild rash Verified 06/19/23 09:22 nickel AdvReac Mild hives Verified 06/19/23 09:22 prednisone AdvReac Mild palpitations, Verified 06/19/23 09:22 weakness Sulfa (Sulfonamide AdvReac Mild hives Verified 06/19/23 09:22 Antibiotics) PFSH Acute PFSH: Medical History Fibromyalgia Left shoulder tendonitis Surgical History History of appendectomy H/O: hysterectomy Hx of cholecystectomy Family History Sister Hypertension Brother Hypertension Mother Hypertension Cancer kidney cancer Social History Smoking and tobacco/nicotine status: current every day tobacco/nicotine user (1/2 ppd) cigarettes Alcohol intake: never Substance/Drug Use: never Vitals/I&O/Wt Last Vital Signs Temp 98.0 F 06/19/23 09:22 Pulse 70 06/19/23 09:22 Resp 12 06/19/23 09:22 BP 100/53 06/19/23 09:22 Pulse Ox 94 06/19/23 09:22 O2 Del Method Room Air 06/19/23 09:22 06/18/23 06/19/23 06/19/23 22:59 06:59 14:59 Intake Total 1000 / 1000 Balance 1000 / 1000 Weight last 48 hrs Weight 105 lb Physical Exam Narrative: NIH score = 0 The patient is alert and oriented x 3. Speech fluent. Head normocephalic. Neck supple. Cranial nerves II through XII intact. Pupils equal round and reactive to light and accommodation. Extraocular movements intact. Visual arceo full via confrontation except for complaints of 2 floaters in the left eye (1 chronic and the other occurred acutely on 06/19/2023). Motor testing 5/5 bilaterally. There was no ataxia. Sensory examination intact to gross modalities. Throat clear. Lungs clear. Heart regular rhythm and rate. Extremities were negative for cyanosis Data 06/19/23 09:58 06/19/23 09:58 A&P Assessment and plan (1) TIA (transient ischemic attack): Impression: 1. 57-year-old female who reports being at home and suddenly began walking to the left associated with tunnel vision followed by loss of consciousness for an undetermined period of time awakening with numbness and tingling in the left upper extremity with palpitations, increased heart rate and a new floater in the left eye. Clinical history suggestive of posterior circulation TIA versus stroke on 06/19/2023. Note: Since the patient's NIH score =0 the patient was not a candidate for intravenous thrombolytics and no intravenous thrombolytics were administered 2. Syncope 06/19/2023 3. History of chronic left eye floater now with reports of acute additional new left eye floater 4. Nicotine dependence 5. Total abdominal hysterectomy 6. Palpitations/increased heart rate 7. Family history of maternal aunt with coronary atherosclerotic heart disease status post CABG x 4 Plan: 1. Recommend CT angiogram of the head and neck to assess for posterior circulation thrombus (note: The study was performed on 06/19/2023 and reported to be negative for large vessel occlusion or ophthalmic aneurysm) 2. Recommend head MRI with and without contrast to assess for posterior fossa lesion and stroke 3. Recommend 2D echocardiogram with bubble study to assess for embolic source for stroke/TIA 4. Recommend observation admission with cardiac telemetry monitoring to assess for cardiac arrhythmias 5. Recommend starting aspirin 325 mg p.o. every morning with food first dose now 6. Recommend starting Zocor 40 mg p.o. q. evening per NIH stroke protocol 7. Neurochecks per NIH stroke protocol 8. Syncope precautions during this hospitalization and per state law until further notice 9. Recommend scheduling sleep deprived 61-minute surface EEG recording on outpatient basis to assess for seizures since patient reported experiencing a syncopal episode on 06/19/2023 10. Consider cardiac evaluation to assess for cardiac arrhythmias 11. The patient was encouraged to stop smoking. The patient is aware of the potential health risks associated with smoking and voiced understanding 12. Please schedule patient for follow-up in the [facility] neurology clinic 1 to 2 weeks after discharge (2) Syncope: (3) Visual floaters: (4) Palpitation: Consult Attestations Medical Necessity Statement: The patient was evaluated by neurology for acute onset of walking to the left associated with tunnel vision, loss of consciousness and upon awakening from loss of consciousness patient complained of numbness and tingling in the left arm associated with palpitations and increased heart rate and a new floater in the left eye. Coding Level of Care Code 91050 Diagnoses TIA (transient ischemic attack) G45.9 Syncope R55 Visual floaters H43.399 Palpitation R00.2
[2023-06-19 13:01] LABS: Troponin 5 2HR Delta 0.00001 ABS# (0-10)
--- NOTE | 2023-06-19 13:26 | USCV_ITS ---
Rosmery Recio Age: 57 Gender: F : 1965 Exam Date: 06/19/2023 15:22 Ordering Phys: Amairani Kramer MD Technologist: [place] [facility] [place]: tia BP: 136 / 82 HR: 0 Rhythm: Sinus Technical Quality: Adequate MEASUREMENTS (Male / Female) Normal Values 2D ECHO LV Diastolic Diameter PLAX 3.1 cm 4.2 - 5.9 / 3.9 - 5.3 cm IVS Diastolic Thickness 1.0 cm 0.6 - 1.0 / 0.6 - 0.9 cm IVS Systolic Thickness 1.1 cm LVPW Diastolic Thickness 0.7 cm 0.6 - 1.0 / 0.6 - 0.9 cm LVPW Systolic Thickness 1.3 cm LVOT Diameter 2.0 cm LV Ejection Fraction 2D Teich 66.8 % IVC Diameter 1.5 cm M-MODE LA Ao Ratio MM 1.0 AV Cusp Separation MM 2.1 cm DOPPLER AV Area Cont Eq vti 3.3 cm squared AV Area Cont Eq pk 2.8 cm squared MV Area PHT 3.8 cm squared TR Peak Velocity 252.0 cm/s TR Peak Gradient 25.4 mmHg Right Atrial Pressure 3.0 mmHg Pulmonary Artery Systolic Pressu 28.4 mmHg FINDINGS Left Ventricle Left ventricle is normal size. LV systolic function is normal with EF of 60 to 65%. No regional wall motion abnormalities are seen. Right Ventricle Normal in size and function Right Atrium Normal in size. Bubble study not showing intracardiac shunting. Left Atrium Normal in size Mitral Valve Structurally normal mitral valve. Trace mitral regurgitation. Aortic Valve Structurally normal aortic valve. No significant stenosis or regurgitation. Tricuspid Valve Mild tricuspid regurgitation. Pulmonary artery systolic pressure is normal. Pulmonic Valve Not well visualized Pericardium Normal Aorta Normal in size IVC Appears to be normal CONCLUSIONS LV systolic function is normal with EF of 60-65% Bubble study not showing intracardiac shunting Trace mitral regurgitation Mild tricuspid regurgitation No comparison studies are available. Garfield Horne MD (Electronically Signed) Final Date: 19 June 2023 17:35 S
--- NOTE | 2023-06-19 13:26 | MR_ITS ---
WS: [id number] MRI HEAD WITH CONTRAST TECHNIQUE: Sagittal T1, T2 axial, T2 axial FLAIR, axial susceptibility weighted imaging, axial diffus ion weighted images, and coronal T2 images were obtained. Pre and post-T1 axial and post T1 coronal i mages. ADC and FSPGR images. CLINICAL INFORMATION: Posterior circulation TIA COMPARISON: CT 06/19/2023 FINDINGS: No evidence of restricted diffusion to suggest acute ischemia. Ventricular system and basilar cistern s are patent. No suspicious intracranial signal abnormalities. Minimal small vessel changes. Mild par enchymal volume loss. Normal posterior fossa. Normal vascular flow voids at the skull base. No extra- axial fluid collections. No evidence of mass or mass effect. Paranasal sinuses and mastoid air cells are well aerated. Partially visualized postoperative changes in the mid cervical spine. No hemosideri n on the susceptibly weighted images. Normal optic chiasm and pituitary infundibulum. Temporal lobes and hippocampal formations appear normal. Normal posterior nasopharynx. Normal parapharyngeal fat. No abnormal gadolinium enhancement. Normal d ural venous sinuses. IMPRESSION: 1. No evidence of restricted diffusion to suggest acute ischemia. 2. Minimal small vessel changes. Mild parenchymal volume loss. 3. No abnormal gadolinium enhancement. 4. No hemosiderin on the susceptibility weighted images.
--- NOTE | 2023-06-19 13:26 | P.HP_ITS ---
Providers/Chief Complaint 2 Admitting Physician: Amairani Kramer MD Primary Care Provider: Celeste Engel MD Chief Complaint: blacking out, confusion History of Present Illness Rosmery Recio is a 57 year old female who presented to the emergency room via private vehicle with several neurological complaints. She was actually driving in her car when she had sudden onset of feeling off . She says that she had a sensation of being pulled to the left side of her body or that her left side was outside of her body. This sensation initially lasted only a few seconds and then resolved but quickly came back. The car was stopped at this time. She began to get lightheaded, developed tunnel vision and blacked out. She was by herself and it is not known how long she was out. There was no loss of bowel or bladder function. She does not know if she had turned her head to 1 side or the other prior to the onset of becoming lightheaded. When she came to, she had some numbness and tingling in her left arm and left leg. She was still in a seated position. Her vision was noticeable for a new floater in the left eye on top of a known chronic floater. She had a sensation of butterflies in her chest followed by a pounding in her chest that subsequently subsided. She called her daughter and her brought her to the hospital by private vehicle. There was no damage to the car that she was driving. NIH stroke scale was 0. She was evaluated by neurology. CTA of the head and neck did not show any occlusive lesions. She received aspirin 325 mg. Request is made for observation admission due to clinical presentation of acute posterior circulation TIA versus stroke. Patient has no personal history of stroke. She does smoke. She has previous lipid panel indicating dyslipidemia with high cholesterol, high triglycerides and low HDL though at this point in time unclear if that was a fasting specimen. She has had previous palpitations but never neurological symptoms. She describes having had 24 and 72-hour Holter monitoring in [place] without any abnormal results reported back to her though it was suggested that if she continued to have palpitation she may require an implanted monitor. At the present time she is not quite back to baseline. Family says that she is speaking slower than usual and is not quite herself. She describes vision in her left eye as being weird . She also describes a heaviness sensation in both her left upper extremity and left arm along with a slight sensation of weakness in both. With gait she was leaning to the left a bit per information reported to me from the ER earlier. Review of Systems 2 General: Reports: Other (ROS as per HPI or as otherwise noted here) Const: Reports: change in appetite (decreased recently with cough), change in weight (Reports 7 pound weight loss last few weeks while with a cough) and fatigue; Denies: fever(s) Eyes: Reports: floaters (one new on one chronic left eye); Denies: blurry vision, photophobia or seeing flashes Card: Reports: palpitations (no other recent episodes of palpitations described like todays); Denies: chest pain or edema Resp: Reports: dyspnea, productive cough and non-productive cough; Denies: pain on inspiration or hemoptysis GI: Denies: dysphagia, change in bowel habits or hematochezia : Denies: difficulty voiding or hematuria Musc: Reports: joint pain (takes naproxen for pains) Neuro: Denies: headache(s), frequent falls or seizure-like activity Abraham/Lymph: Denies: easy bruising or easy bleeding Medications/Allergies Home Medications Medication Instructions Recorded Confirmed Last Taken Type naproxen 500 mg tablet 500 mg PO BID PRN INFLAMATION AND 06/22/19 06/19/23 Unknown History PAIN ascorbic acid (vitamin C) 500 mg 250 mg PO DAILY 06/19/23 06/19/23 06/18/23 History tablet (Vitamin C) cholecalciferol (vitamin D3) 50 50 mcg PO DAILY 06/19/23 06/19/23 06/18/23 History mcg (2,000 unit) tablet (Vitamin D3) multivitamin 1 tab PO DAILY 06/19/23 06/19/23 06/18/23 History Allergies Allergy/AdvReac Type Severity Reaction Status Date / Time amoxicillin Allergy anaphylaxis Verified 06/19/23 09:22 ibuprofen AdvReac Mild hives Verified 06/19/23 09:22 meloxicam [From Mobic] AdvReac Mild rash Verified 06/19/23 09:22 nickel AdvReac Mild hives Verified 06/19/23 09:22 prednisone AdvReac Mild palpitations, Verified 06/19/23 09:22 weakness Sulfa (Sulfonamide AdvReac Mild hives Verified 06/19/23 09:22 Antibiotics) Additional Medication Information Not on aspirin or statin previously PFSH Acute 2 PFSH: Medical History (Updated 06/19/23 @ 13:43 by NIKOLAS Baires) GERD (gastroesophageal reflux disease) Mixed hyperlipidemia Fibromyalgia Surgical History History of appendectomy H/O: hysterectomy Hx of cholecystectomy Family History (Updated 06/19/23 @ 14:47 by Amairani Kramer MD) Sister Hypertension Brother Hypertension Mother Hypertension Cancer kidney cancer Family/Other CAD (coronary artery disease) maternal aunt with history of CABG Other Chronic kidney disease (CKD) Denies family history of Stroke Social History (Updated 06/19/23 @ 15:24 by Amairani Kramer MD) Smoking and tobacco/nicotine status: current every day tobacco/nicotine user (1/2 ppd) cigarettes Alcohol intake: never Substance/Drug Use: never Household members: spouse Marital status: Vitals/I&O/Wt Last Vital Signs Temp 98.0 F 06/19/23 09:22 Pulse 70 06/19/23 09:22 Resp 12 06/19/23 09:22 BP 100/53 06/19/23 09:22 Pulse Ox 94 06/19/23 09:22 O2 Del Method Room Air 06/19/23 09:22 06/18/23 06/19/23 06/19/23 22:59 06:59 14:59 Intake Total 1000 / 1000 Balance 1000 / 1000 Weight last 48 hrs Weight 47.627 kg Physical Exam 2 Narrative: Patient is awake and alert. Thin build. Extraocular movements are intact. Pupils are equal reactive bilaterally. No facial droop is noted. Uvula is midline. Handling secretions. Speech is clear though she thinks about her answers before responding. No visual field deficits appreciated. Shoulder shrug is equal. Cardiovascular exam reveals a regular rate and rhythm without any murmurs noted. Lungs are clear to auscultation bilaterally without any rales rhonchi or wheezes. Abdomen is soft with positive bowel sounds. Extremities there is no pitting edema. Capillary refill is brisk. 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 Toes are equivocal bilaterally. Skin is dry. Data 06/19/23 09:58 06/19/23 09:58 Other Labs: Laboratory Results WBC 7.44 10^3/uL (3.29-11.43) 06/19/23 09:58 RBC 4.93 10^6/uL (3.85-5.65) 06/19/23 09:58 Hgb 15.40 g/dL (11.27-16.99) 06/19/23 09:58 Hct 46.6 % (36-47) 06/19/23 09:58 MCV 94.5 fl (85-98) 06/19/23 09:58 MCH 31.2 pg (27-33) 06/19/23 09:58 MCHC 33.0 g/dL (30-55) 06/19/23 09:58 RDW 12.1 % (12.1-15.1) 06/19/23 09:58 Plt Count 286 10^3/cmm (157-399) 06/19/23 09:58 MPV 8.6 fL (7.4-10.4) 06/19/23 09:58 Neut % (Auto) 59.0 % 06/19/23 09:58 Lymph % (Auto) 28.4 % 06/19/23 09:58 Hayes % (Auto) 11.7 % 06/19/23 09:58 Eos % (Auto) 0.4 % 06/19/23 09:58 Baso % (Auto) 0.4 % 06/19/23 09:58 Neut # (Auto) 4.39 10^3/uL (1.8-7.7) 06/19/23 09:58 Lymph # (Auto) 2.1 10^3/uL (0.8-4.8) 06/19/23 09:58 Hayes # (Auto) 0.9 10^3/uL (0.2-0.9) 06/19/23 09:58 Eos # (Auto) 0.0 10^3/uL (0.0-0.8) 06/19/23 09:58 Baso # (Auto) 0.0 10^3/uL (0.0-0.1) 06/19/23 09:58 Nucleated RBC % (auto) 0 % 06/19/23 09:58 Nucleated RBCs # 0.0 /100WBC 06/19/23 09:58 Sodium 137 mmol/L (136-145) 06/19/23 09:58 Potassium 4.0 mmol/L (3.5-5.1) 06/19/23 09:58 Chloride 104 mmol/L (98-107) 06/19/23 09:58 Carbon Dioxide 23 mmol/L (22-29) 06/19/23 09:58 Anion Gap 14.0 (5-19) 06/19/23 09:58 BUN 11 mg/dL (6-20) 06/19/23 09:58 Creatinine 0.7 mg/dL (0.5-0.9) 06/19/23 09:58 GFR Calculation 86.9 mL/min (90-130) L 06/19/23 09:58 Glucose 92 mg/dL (65-115) 06/19/23 09:58 Calculated Osmolality 283 mOsm/kg (285-295) L 06/19/23 09:58 Calcium 9.1 mg/dL (8.5-10.5) 06/19/23 09:58 Total Bilirubin 0.3 mg/dL (0.15-1.2) 06/19/23 09:58 AST 15 U/L (0-32) 06/19/23 09:58 ALT 12 U/L (0-33) 06/19/23 09:58 Alkaline Phosphatase 91 U/L (35-105) 06/19/23 09:58 Troponin T Baseline < 6 ng/L (0-10) 06/19/23 09:58 Troponin T 120 Minute 6.00 ng/L (0-10) 06/19/23 12:27 Delta Troponin T 0.15505 ABS# (0-10) 06/19/23 12:27 Total Protein 7.8 g/dL (6.6-8.7) 06/19/23 09:58 Albumin 4.6 g/dL (3.5-5.2) 06/19/23 09:58 Globulin 3.2 g/dL (1.3-4.6) 06/19/23 09:58 PREVIOUS LABS TO NOTE 06/29/22 14:13 Triglycerides 287 H Cholesterol 217 H LDL Cholesterol, Calc 123 HDL Cholesterol 37 L LDL/HDL Ratio 3.32 H Cholesterol/HDL Ratio 5.86 H Other data: RADIOLOGY: Noncontrasted CT Head 06/19/23 No acute intracranial hemorrhage, midline shift or mass effect. No atrophy or prior infarcts or herniation. Ventricles: Normal size with no hydrocephalus. There is very slight enlargement of the LEFT occipital horn which is probably normal variant. No adjacent infarct is identified. Paranasal sinuses: As visualized are clear. Mastoid air cells: Well pneumatized. Calvarium and scalp: Skull is intact with no soft tissue edema or swelling. IMPRESSION: Unremarkable noncontrast CT head. No acute findings. Head and Neck CTA 06/19/23 Carotid Angiogram: Right carotid: Common carotid artery: Arises normally from the innominate artery. No significant plaque or stenosis. Internal carotid artery: No plaque or stenosis. External carotid artery: Patent. Left carotid: Common carotid artery: Arises normally from the aorta. No significant plaque or stenosis. Internal carotid artery: No plaque or stenosis. External carotid artery: Patent. Right vertebral artery: Unremarkable. Left vertebral artery: Unremarkable. Arises normally from the subclavian artery. Subclavian arteries: No stenosis or significant abnormality. Upper thorax: Biapical pleural thickening and scarring. Thyroid gland: Small tiny nodules RIGHT thyroid. Osseous structures: Unremarkable. CEREBRAL ANGIOGRAM: Intracranial vertebral arteries: Normal with no significant atherosclerosis. Basilar artery: No significant stenosis or occlusion. No aneurysm. Intracranial Internal carotid arteries: Demonstrates no significant stenosis or plaque. Middle cerebral arteries: Normal. Anterior cerebral arteries and ACOM: Normal. Posterior cerebral arteries and PCOM's: Normal. Dural venous sinuses are normally enhancing. Mastoid air cells: Normal. Paranasal sinuses: Normal. Calvarium: Normal. IMPRESSION: 1. Normal carotid arteries. 2. No occlusions or significant atherosclerotic disease within the [place]. No aneurysm. No ophthalmic artery aneurysm. CXR 06/19/23 Hyperinflated lungs with emphysema. No mass or nodule. No pneumonia. No pleural effusion or pneumothorax. Cardiac size: Normal. Mediastinum/Aorta: Normal mediastinum. No osseous abnormality seen. IMPRESSION: Chronic emphysema. No pneumonia. A&P Assessment and plan (1) Acute posterior circulation transient ischemic attack: Versus stroke at this juncture. MCA distribution stroke not out of the differential. Symptoms have not completely resolved with patient having a heaviness sensation on the left side of her body, a new floater in her left eye without visual field changes, slower speech without dysarthria and a continued sensation of pulling to the left . NIH stroke scale was and remains 0 so not a candidate for any intravenous thrombolytics. Has not been on antiplatelet therapy. Known risk factors of tobacco use and dyslipidemia. (2) Syncope: May be Guzman-Juarez syncope or vasovagal from description. Do not have specific description of her turning her head prior but carotid sinus syncope and seizure in differential. No loss of bowel or bladder function. Not on medications associated with syncope. Heart rate normal sinus rhythm here thus far. BP normal range, lower end. Reported palpitations noted after syncopal episode. (3) Palpitation: Present during event today at home, resolved on arrival here. EKG x two with normal sinus rhythm. Has a history of having heart monitoring for 24 and 72 hours in [place] some years ago without abnormality reported back to her and suggestion of potential need for implanted monitor if symptoms recurred. (4) Visual floaters: New floater in left eye noted after todays acute event. Has previously only had one visible floater, now with two today. Qualifiers: Laterality: left Qualified Code(s): H43.392 - Other vitreous opacities, left eye (5) Mixed hyperlipidemia: Previously identified diagnosis, not on any pharmacological treatment (6) Tobacco use: Half pack a day Plan Recent cough, non-productive and weight loss/fatigue - chest xray with emphysematous changes Observation admission Appreciate neurology input Serial neurological exams PT, OT and speech evaluations MRI of the head Echocardiogram with bubble study Starting whole aspirin and statin therapy Check INR, A1c and lipid panel Continue serial cardiac enzymes Telemetry monitoring Depending on results of above may consider event monitoring after discharge Reviewed with patient importance of smoking cessation in terms of decreasing risk of future neurological events and vascular disease. Reviewed with patient risk and benefits of aspirin and statin therapy including bleeding, impact of the liver function studies, impact on muscles and to hold off on using NSAID therapy other than aspirin for the time being, instead opting for Tylenol or acetaminophen for pain VTE prophylaxis: SCDs, with observation status low risk and therefore no current indication for pharmacological DVT prophylaxis GI Prophylaxis: Not currently indicated Antibiotics: none Pending studies: MRI of the head with and without contrast, echocardiogram, A1c, INR, lipid panel Telemetry: Ordered to evaluate for arrhythmias given palpitations and TIA Alexander: not currently indicated Line(s): peripheral IVs Disposition plan: Home with outpatient follow up with neurology in the next 1 to 2 weeks as well as with primary care provider. With initiation of statin therapy will need LFTs checked in a few weeks. Anticipate addition of aspirin and statin along with holding of naproxen at discharge at this time. Code Status: Full Code Supportive care otherwise Findings, concerns and plans were discussed with patient and they were given an opportunity to ask questions Attestations 2 Medical Necessity Statement*: Currently anticipate a stay less than two midnights in this patient presenting with symptoms consistent with acute posterior circulation transient ischemic attack versus stroke, associated with syncope. Although her NIH stroke scale score is 0 her symptoms have not fully resolved. She is young with risk factors of tobacco use and dyslipidemia. Given the extent of her symptoms today, monitoring and further evaluation in the hospital setting has the greatest chance of decreasing reversible risk for more significant future neurological sequela/morbidity. Coding Level of Care Code 08229 High Time for a total of 75 minutes, includes reviewing past or interval history, examining/interviewing patient, placing orders, counseling patient/family/other support (Education regarding smoking cessation and other stroke prevention, plans) and documenting encounter Diagnoses Acute posterior circulation transient ischemic attack G45.8 Syncope R55 Palpitation R00.2 Vitreous floaters of left eye H43.392 Laterality: left Mixed hyperlipidemia E78.2 Tobacco use Z72.0
[2023-06-19 13:48] LABS: INR 0.92 (0.8-1.2)
[2023-06-19] MEDS: gadobenate dimeglumine 20 mL vial IV (15:28)
--- NOTE | 2023-06-19 15:43 | ECG_ITS ---
[facility] Test Date: 2023-06-19 Pat Name: Rosmery Recio Department: Room: 263 Gender: Female Product Safety Professional: : [id number] Requested By: Katya Hardy Order Number: [id number] Ritchie MD: Garfield Horne M.D. Measurements Intervals [place] Rate: 51 P: 77 ID: [id number] QRS: 53 QRSD: 80 T: 62 QT: 416 QTc: 386 Interpretive Statements SINUS BRADYCARDIA POSSIBLE RIGHT VENTRICULAR CONDUCTION DELAY [RSR (QR) IN V1/V2] Compared to ECG 06/19/2023 12:05:38 Sinus rhythm no longer present Electronically Signed On 06-20-2023 16:33:28 READING COACH by Garfield Horne M.D. [email or web address]
[2023-06-19 17:00] LABS: Troponin 5 6HR Delta 0.00001 ng/L (0-12)
[2023-06-19] MEDS: atorvastatin 40 mg Tablet PO (20:15)
[2023-06-20 00:05] VITALS: BP 98/56; PULSE 60; RESP 18; TEMP 37; O2SAT 99
[2023-06-20 05:06] VITALS: BP 96/50; PULSE 52; RESP 16; TEMP 37; O2SAT 96
[2023-06-20 05:57] LABS: Chol HDL Ratio 6.15 mg/dL (0.0-4.40); Cholesterol 209 mg/dL (0-200); HDL Cholesterol 34 mg/dL (60-100); LDL Cholesterol Calculated 143 mg/dL (50-129); LDL HDL Ratio 4.21 RATIO (0.00-3.22); Triglycerides 162 mg/dL (0-150)
[2023-06-20 05:59] LABS: Estmated Average Glucose 123; Hemoglobin A1C 5.9 % (4.0-6.0)
[2023-06-20 07:46] VITALS: BP 103/61; PULSE 78; RESP 18; TEMP 36.8; O2SAT 94
[2023-06-20] MEDS: aspirin 325 mg Tablet PO (08:46)
[2023-06-20 11:00] VITALS: BP 101/59; PULSE 59; RESP 18; TEMP 36.8; O2SAT 92
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
--- NOTE | 2023-06-20 11:25 | US_ITS ---
WS: [id number] RENAL ULTRASOUND HISTORY: renal us COMPARISON: None available. TECHNIQUE: 2-D and color Doppler imaging of the kidney submitted. Right kidney: 10.3 cm x 4.2 cm x 3.3 cm. Cortex: 1.3 cm Normal echogenicity with no hydronephrosis or mass. Left kidney: 9.7 cm x 4.3 cm x 3.9 cm. Cortex: 1.3 cm Normal echogenicity with no hydronephrosis or mass. Aorta: Normal. Urinary Bladder: Normal distention. IMPRESSION: Normal renal ultrasound.
[2023-06-20 13:37] VITALS: BP 101/59; PULSE 59; RESP 18; TEMP 36.8; O2SAT 92
== END 2023-06-20 13:39 | disposition home or self-care (01) ==
LOC: ER 13:43 → MEDSURG 15:44
PROVIDERS: Hospitalist; Admitting Provider Psychiatry & Neurology Psychiatry; Emergency Provider Physician Assistant; PCP Family Medicine; Visit Provider Family Medicine
DX: G45.8 Other transient cerebral ischemic attacks and related syndromes (principal); R55 Syncope and collapse; R00.2 Palpitations; H43.392 Other vitreous opacities, left eye; E78.2 Mixed hyperlipidemia; Z72.0 Tobacco use; M79.7 Fibromyalgia; F17.210 Nicotine dependence, cigarettes, uncomplicated; K21.9 Gastro-esophageal reflux disease without esophagitis
CPT/HCPCS: 36415; 70450; 70496; 70498; 70553; 71045; 76770; 80053; 80061; 83036; 84484; 85025; 85610; 92523; 92610; 93005; 97110; 97161; 97165; 99285; A9577; C8929; G0378; J7030; Q9967

== ENCOUNTER → 2023-06-28 13:41 | Outpatient (BNVA) | payer MEDICARE, SELFPAY | PROVIDERS: PCP Family Medicine; Referring Provider Family Medicine; Visit Provider Internal Medicine | DX: G45.9 Transient cerebral ischemic attack, unspecified (principal); R55 Syncope and collapse; E78.2 Mixed hyperlipidemia; Z72.0 Tobacco use | CPT/HCPCS: 99204 ==

== ENCOUNTER → 2023-09-18 14:06 | Outpatient (BNVA) | payer MEDICARE, SELFPAY | PROVIDERS: PCP Family Medicine; Visit Provider Family Medicine | DX: I10 Essential (primary) hypertension (principal); R25.2 Cramp and spasm; G45.9 Transient cerebral ischemic attack, unspecified; R35.0 Frequency of micturition; R30.0 Dysuria; E78.2 Mixed hyperlipidemia; Z91.148 Patient's other noncompliance with medication regimen for other reason | CPT/HCPCS: 80048; 81000; 83735 ==

== ENCOUNTER → 2023-12-06 07:52 | Outpatient (BNVA) | payer MEDICARE, SELFPAY | PROVIDERS: PCP Family Medicine; Visit Provider Psychiatry & Neurology Neurology | DX: R55 Syncope and collapse (principal); R00.2 Palpitations; I20.1 Angina pectoris with documented spasm | CPT/HCPCS: 99212 ==

== ENCOUNTER → 2023-12-12 11:15 | Outpatient (BNVA) | payer MEDICARE, SELFPAY | PROVIDERS: PCP Family Medicine; Visit Provider Internal Medicine | DX: M54.2 Cervicalgia (principal); G45.9 Transient cerebral ischemic attack, unspecified; R55 Syncope and collapse; E78.2 Mixed hyperlipidemia; Z72.0 Tobacco use; R07.89 Other chest pain | CPT/HCPCS: 99214 ==

== ENCOUNTER 2024-01-05 06:00 | Outpatient (CLI) | payer MEDICARE, SELFPAY ==
--- NOTE | 2024-01-05 11:15 | CT_ITS ---
WS: [id number] LDCT LUNG CANCER SCREENING HISTORY: F17.210 - Nicotine dependence, cigarettes, uncomplicated TECHNIQUE: Axial imaging performed from the apices to 1 cm below the costophrenic angles. Coronal and sagittal reformats are submitted with axial MIP series. All CT scans at [facility] use at least one of these dose optimization techniques: automated exposure control; mA and/or kV adjustment per patient size (includes targeted exams where dose is matched to clinical indication); or iterativ e reconstruction. DLP: 1.20 DIvol: 45.10 COMPARISON: None available. Diagnostic quality: Satisfactory Lungs: Biapical pleural scarring and fibrosis. Bilateral subpleural nodules and tagging identified. T his is also typically benign. There are a few peripheral microcalcifications throughout the lungs. LE FT upper lobe bronchiectasis. There is a component of mild mucous plugging with bronchial wall thicke daquan and bronchiectasis at the lingula. Heart: Normal size heart with no pericardial effusion.. Other findings: Mild atherosclerosis aorta. No adenopathy on this unenhanced exam. CT/CT lung screening [id number] IMPRESSION: LUNG-RADS: 2-Benign Appearance or Behavior FOLLOW UP: 12 Month: Continue annual screening with LDCT OTHER FINDINGS (S MODIFIER): None.
== END 2024-01-05 06:01 | disposition home or self-care (01) ==
LOC: RAD 01-10 14:24
PROVIDERS: PCP Family Medicine; Visit Provider Family Medicine
DX: Z12.2 Encounter for screening for malignant neoplasm of respiratory organs (principal); F17.210 Nicotine dependence, cigarettes, uncomplicated; J84.10 Pulmonary fibrosis, unspecified; R91.8 Other nonspecific abnormal finding of lung field; J47.9 Bronchiectasis, uncomplicated
CPT/HCPCS: 71271

== ENCOUNTER 2024-01-12 06:47 | Outpatient (CLI) | payer MEDICARE, SELFPAY ==
[2024-01-12 07:01] VITALS: BMI 18.7
--- NOTE | 2024-01-12 07:03 | ECG_ITS ---
[facility] Test Date: 2024-01-12 Pat Name: Rosmery Recio Department: Room: Gender: Female Radiographic Technologist: Kayode Ortiz : 1965 Requested By: Garfield Horne Order Number: [id number] Ritchie MD: Garfield Horne M.D. Interpretive Statements NAME OF STUDY: LEXISCAN SESTAMIBI STRESS TEST INDICATION: [CP/SOB, ] Procedure: At the baseline, the blood pressure was 110/72 mmHg with a heart rate of 66 bpm. The electrocardiogram showed normal sinus rhythm, normal axis with normal ST and T's. The Lexiscan was infused over a period of 20 seconds. A total of 0.4 mg of Lexiscan was infused. The stress phase was continued for a total of 5 minutes. Heart rate was at the end of stress phase was 97 bpm and a blood pressure of 101/58 mmHg. The EKG at the peak infusion revealed normal sinus rhythm with no significant ST-T wave changes. Sestamibi was injected 20 seconds after the Lexiscan infusion. Blood pressure at the end of recovery phase was 108/65 mmHg with a heart rate of 77 bpm. Conclusion: 1. Normal EKG response to Lexiscan infusion 2. No Lexiscan induced chest pain or cardiac arrhythmia. 3. Normal blood pressure and heart rate response. 4. Sestamibi/sestamibi perfusion scan pending; see separate report. Electronically Signed On 01-15-2024 11:44:38 CDT by Garfield Horne M.D. [id number]
--- NOTE | 2024-01-12 07:03 | NMCV_ITS ---
NM lopez perf SPECT r/s* [id number] Rosmery Recio Age: 58 Gender: F : 1965 Exam Date: 01/12/2024 07:36 Ordering Phys: Garfield Horne M.D ([email or web address]) Technologist: EDDIE Casillas Exam Location: [facility] Indications: CP, SOB STRESS TEST Please see separate stress test report in [facility] for full findings IMAGE PROTOCOL Rest/Stress 1 Lexiscan Day Radiopharmaceutical Dose (mCi) Administration Site Administered by Rest: Tc-99m 10.9 IV EDDIE Pompa Sestamibi Stress:Tc-99m 33 IV EDDIE Pompa Sestamibi Rest: 12-Jan-2024 60 Discovery 630 Stress: 12-Jan-2024 30 Discovery 630 0.4mg Lexiscan. Images obtained in supine and prone position. SPECT RESULTS Technical Quality: Good Raw Data Analysis: Normal Image Corrections: No attenuation or motion correction applied Summed Stress Score: 0 Summed Rest Score: 0 Summed Difference Score: 0 PERFUSION FINDINGS SPECT images demonstrate homogeneous tracer distribution throughout the myocardium. FUNCTIONAL RESULTS (calculated via Gated SPECT) Stress Image LV EF (%): 79 Stress EDV (mL):48 TID: 1.06 Stress ESV (mL):10 FUNCTIONAL FINDINGS: There is normal left ventricular systolic function. IMPRESSIONS 1. Normal myocardial perfusion imaging with no evidence of ischemia. 2. LV systolic function is normal. Garfield Horne MD (Electronically Signed) Final Date: 12 January 2024 10:59 S
[2024-01-12] MEDS: regadenoson 0.4 Mg/5 ml Syringe IVP (08:17)
[2024-01-12] MEDS: ondansetron 2 mg/ML SDV 2 mL 4 MG IVP (08:24)
[2024-01-12] MEDS: aminophylline 25 mg/mL SDV 10 mL IVP (08:29)
[2024-01-12 08:33] VITALS: BP 108/65; PULSE 75
== END 2024-01-12 06:48 | disposition home or self-care (01) ==
PROVIDERS: PCP Family Medicine; Visit Provider Internal Medicine
DX: R07.9 Chest pain, unspecified (principal); R06.02 Shortness of breath
CPT/HCPCS: 36415; 78452; 93017; 96374; 96375; A9500; J0280; J2405; J2785

== ENCOUNTER → 2024-04-16 07:29 | Outpatient (BNVA) | payer MEDICARE, SELFPAY | PROVIDERS: PCP Family Medicine; Visit Provider Psychiatry & Neurology Neurology | DX: R55 Syncope and collapse (principal) | CPT/HCPCS: 95819 ==

== ENCOUNTER → 2024-06-17 08:30 | Outpatient (BNVA) | payer MEDICARE, SELFPAY | PROVIDERS: PCP Family Medicine; Visit Provider Family Medicine | DX: E78.2 Mixed hyperlipidemia (principal); R73.03 Prediabetes; J06.9 Acute upper respiratory infection, unspecified; Z72.0 Tobacco use | CPT/HCPCS: 80053; 80061; 83036 ==

== ENCOUNTER → 2024-09-25 12:50 | Outpatient (BNVA) | payer MEDICARE, SELFPAY | PROVIDERS: PCP Family Medicine; Visit Provider Internal Medicine | DX: R55 Syncope and collapse (principal); E78.2 Mixed hyperlipidemia; Z79.82 Long term (current) use of aspirin; Z72.0 Tobacco use; Z86.73 Personal history of transient ischemic attack (TIA), and cerebral infarction without residual deficits | CPT/HCPCS: 99214 ==

== ENCOUNTER 2025-01-31 12:53 | Outpatient (CLI) | payer MEDICARE, SELFPAY ==
--- NOTE | 2025-01-31 13:00 | XR_ITS ---
WS: [email or web address] SCREENING DEXA SCAN [employer] CLINICAL INFORMATION: Z78.0 - Asymptomatic menopausal state COMPARISON: None. FINDINGS: The L1-L4 bone mineral density measures 1.029 g/cm2. This corresponds to a T score score of -1.3 and Z score of 0.2. Left femoral neck bone mineral density measures 0.712 g/cm2. This corresponds to a T score of -2.3 and Z score of -1.2. Right femoral neck bone mineral density measures 0.702 g/cm2. This corresponds to a T score -2.4of and Z score of -1.3. Mean femoral neck bone mineral density measures 0.707 g/cm2. This corresponds to a T score of -2.4 and Z score of -1.3. XR/XR DEXA axial skeleton* 20273 IMPRESSION: Osteopenia lumbar spine. Osteopenia femoral necks approaching osteoporosis. Patient's FRAX calculated 10 year probability for major osteoporotic fracture i s 7.5% and osteoporotic hip fracture is 1.6%.
== END 2025-01-31 12:54 | disposition home or self-care (01) ==
LOC: RAD 12:54
PROVIDERS: PCP Family Medicine; Visit Provider Family Medicine
DX: Z78.0 Asymptomatic menopausal state (principal); Z13.820 Encounter for screening for osteoporosis
CPT/HCPCS: 77080